=== PATIENT | male | born 1975 | race Caucasian/White ===

== ENCOUNTER 2018-07-28 22:00 | Inpatient (IN) | payer MEDICAID ==
[~2018-07-28] VITALS: Ht 172.7 cm; Wt 100.7 kg
[2018-07-28 23:34] VITALS: BP 144/93
[2018-07-28] MEDS ORDERED: LORazepam 2 MG TABLET PO PRN (23:45)
[2018-07-28] MEDS ORDERED: ZOLPIDEM TARTRATE 10 MG TABLET PO PRN (23:45)
[2018-07-29] VITALS (15 sets, daily range): BP systolic 108–163; BP diastolic 57–101
[2018-07-29] MEDS ORDERED: PNEUMOCOCCAL VACCINE POLYVALENT 0.5 ML VIAL [PPSV23] IM ONE (01:15)
[2018-07-29] MEDS ORDERED: MIRT15 PO (01:46)
[2018-07-29] MEDS ORDERED: AMLO-511 PO (01:46)
[2018-07-29] MEDS ORDERED: FLUO-191 PO (01:46)
[2018-07-29] MEDS ORDERED: LISI-661 PO (01:46)
[2018-07-29] MEDS ORDERED: LIB25 PO (01:48)
[2018-07-29] MEDS ORDERED: GABA-531 PO (01:48)
[2018-07-29 07:01] LABS: BASOPHILS % (AUTO) 1.3 % (0.0-2.0); EOSINOPHILS % (AUTO) 2.8 % (1.0-6.0); HEMATOCRIT 37.9 % (41-53); HEMOGLOBIN 12.8 g/dL (13.5-17.5); LYMPHOCYTES # (AUTO) 2.1 K/uL (1.0-4.8); LYMPHOCYTES % (AUTO) 37.1 % (22.0-44.0); MEAN CORPUSCULAR HEMOGLOBIN 30.5 pg (26.0-34.0); MEAN CORPUSCULAR HGB CONC 33.8 G/dL (31.0-37.0); MEAN CORPUSCULAR VOLUME 90 fL (80-100); MONOCYTES # (AUTO) 0.4 K/uL (0.1-1.0); MONOCYTES % (AUTO) 6.7 % (2.0-9.0); NEUTROPHILS % (AUTO) 52.1 % (40.0-70.0); PLATELET COUNT (AUTO) 262 K/uL (150-450); RED CELL DISTRIBUTION WIDTH 13.9 % (11.5-14.5)
[2018-07-29 07:23] LABS: ALANINE AMINOTRANSFERASE 37 U/L (12-78); ALBUMIN 3.4 g/dL (3.4-5.0); ALKALINE PHOSPHATASE 48 U/L (46-116); ANION GAP 12 mmol/L (8-16); ASPARTATE AMINOTRANSFERASE 31 U/L (15-37); BILIRUBIN,TOTAL 0.6 mg/dL (0.1-1.0); CALCIUM, TOTAL 8.9 mg/dL (8.8-10.5); CARBON DIOXIDE 26 mmol/L (22-29); CHLORIDE 104 mmol/L (98-107); CHOL/HDL RATIO 3.6 (4.2-7.3); CHOLESTEROL 200 mg/dL (131-200); CREATININE 0.97 mg/dL (0.60-1.30); FREE T4 (FREE THYROXINE) 0.66 ng/dL (0.76-1.46); GLOMERULAR FILTR. RATE CALC > 60 mL/min (>60); GLUCOSE,RANDOM 95 mg/dL (70-110); HDL CHOLESTEROL 56 mg/dL (40-60); LDL CHOL (CALC.) 93 mg/dL (0-130); POTASSIUM 3.5 mmol/L (3.5-5.1); SODIUM SERUM 142 mmol/L (136-145); TOTAL PROTEIN, SERUM 6.7 g/dL (6.4-8.2); TRIGLYCERIDES 253 mg/dL (15-150); UREA NITROGEN, BLOOD 13 mg/dL (7-18)
[2018-07-29] MEDS ORDERED: IBUPROFEN 400 MG TABLET PO PRN (07:30)
[2018-07-29] MEDS ORDERED: GuaiFENesin/D-METHORPHAN [SUGAR-FREE] 200-20MG/10 ML SYRUP UDCUP PO PRN (07:30)
[2018-07-29] MEDS ORDERED: ACETAMINOPHEN 325 MG TABLET PO PRN (07:30)
[2018-07-29] MEDS ORDERED: PETROLATUM,WHITE 28 GM JELLY TP PRN (07:30)
[2018-07-29] MEDS ORDERED: MAGNESIUM HYDROXIDE SUSPENSION 30 ML UDCUP PO PRN (07:30)
[2018-07-29] MEDS ORDERED: DOCUSATE SODIUM 100 MG CAPSULE PO PRN (07:30)
[2018-07-29] MEDS ORDERED: CloNIDine HCL 0.1 MG TABLET PO PRN (07:30)
[2018-07-29] MEDS ORDERED: ONDANSETRON HCL 4 MG TABLET PO PRN (07:30)
[2018-07-29] MEDS ORDERED: MAG HYDROX/AL HYDROX/SIMETH ES 30 ML SUSPENSION UDCUP PO PRN (07:30)
[2018-07-29] MEDS ORDERED: ALBUTEROL SULFATE HFA 90 MCG/PUFF 8 GM INHALER IH PRN (07:30)
[2018-07-29] MEDS ORDERED: LOPERAMIDE HCL 2 MG CAPSULE PO PRN (07:30)
[2018-07-29] MEDS: AmLODIPine BESYLATE 5 MG TABLET PO SCH (08:45)
[2018-07-29] MEDS: FERROUS SULFATE 325 MG EC TABLET PO SCH (08:45)
[2018-07-29] MEDS: LISINOPRIL 10 MG TABLET PO SCH (08:45)
[2018-07-29] MEDS ORDERED: ChlordiazePOXIDE HCL 25 MG CAPSULE PO PRN (11:30)
[2018-07-29] MEDS ORDERED: CYANOCOBALAMIN 1,000 MCG/ML VIAL IM ONE (11:30)
[2018-07-29] MEDS: FOLIC ACID 1 MG TABLET PO SCH (12:19)
[2018-07-29] MEDS: FLUoxetine HCL 20 MG CAPSULE PO SCH (12:19)
[2018-07-29] MEDS: MULTIVITAMINS WITH MINERALS, THERAPEUTIC TABLET PO SCH (12:19)
[2018-07-29] MEDS: GABAPENTIN 300 MG CAPSULE PO SCH (16:18)
[2018-07-29] MEDS: THIAMINE HCL 100 MG TABLET PO SCH (16:18)
[2018-07-30] VITALS (7 sets, daily range): BP systolic 110–121; BP diastolic 69–85
[2018-07-30] MEDS: FERROUS SULFATE 325 MG EC TABLET PO SCH (06:55)
[2018-07-30] MEDS ORDERED: ChlordiazePOXIDE HCL 25 MG CAPSULE PO PRN (07:00)
[2018-07-30] MEDS: MULTIVITAMINS WITH MINERALS, THERAPEUTIC TABLET PO SCH (08:49)
[2018-07-30] MEDS: FOLIC ACID 1 MG TABLET PO SCH (08:49)
[2018-07-30] MEDS: ChlordiazePOXIDE HCL 25 MG CAPSULE PO SCH ×4 (08:49→20:38)
[2018-07-30] MEDS: FLUoxetine HCL 20 MG CAPSULE PO SCH (08:49)
[2018-07-30] MEDS: THIAMINE HCL 100 MG TABLET PO SCH ×2 (08:49→16:18)
[2018-07-30] MEDS: LISINOPRIL 10 MG TABLET PO SCH (08:49)
[2018-07-30] MEDS: GABAPENTIN 300 MG CAPSULE PO SCH ×2 (08:49→16:18)
[2018-07-30] MEDS: AmLODIPine BESYLATE 5 MG TABLET PO SCH (08:50)
[2018-07-31 01:00] VITALS: BP 118/72
[2018-07-31 01:02] VITALS: BP 118/72
[2018-07-31] MEDS: FERROUS SULFATE 325 MG EC TABLET PO SCH (06:48)
[2018-07-31 08:18] VITALS: BP 97/58
[2018-07-31] MEDS: MULTIVITAMINS WITH MINERALS, THERAPEUTIC TABLET PO SCH (09:20)
[2018-07-31] MEDS: LISINOPRIL 10 MG TABLET PO SCH (09:20)
[2018-07-31] MEDS: ChlordiazePOXIDE HCL 25 MG CAPSULE PO SCH ×2 (09:20→12:35)
[2018-07-31] MEDS: THIAMINE HCL 100 MG TABLET PO SCH (09:20)
[2018-07-31] MEDS: FLUoxetine HCL 20 MG CAPSULE PO SCH (09:20)
[2018-07-31] MEDS: AmLODIPine BESYLATE 5 MG TABLET PO SCH (09:20)
[2018-07-31] MEDS: GABAPENTIN 300 MG CAPSULE PO SCH (09:20)
[2018-07-31] MEDS: FOLIC ACID 1 MG TABLET PO SCH (09:21)
[2018-07-31 09:27] VITALS: BP 116/62
[2018-07-31] MEDS ORDERED: FERR-89 PO (10:19)
[2018-08-01] MEDS ORDERED: ChlordiazePOXIDE HCL 10 MG CAPSULE PO PRN (07:00)
[2018-08-01] MEDS ORDERED: ChlordiazePOXIDE HCL 10 MG CAPSULE PO SCH (09:00)
[2018-08-02] MEDS ORDERED: ChlordiazePOXIDE HCL 10 MG CAPSULE PO PRN (07:00)
== END 2018-07-31 14:10 | disposition home or self-care (01) | DRG 751 ==
LOC: B2S 23:44
DX: F33.2 Major depressive disorder, recurrent severe without psychotic features (principal); R45.851 Suicidal ideations; I10 Essential (primary) hypertension; F10.10 Alcohol abuse, uncomplicated; E78.5 Hyperlipidemia, unspecified; D64.9 Anemia, unspecified; F15.90 Other stimulant use, unspecified, uncomplicated; Z56.0 Unemployment, unspecified; Z91.5 Personal history of self-harm
CPT/HCPCS: 84436; 84439; J3420